=== PATIENT | male | born 1975 | race Two or more races ===

== ENCOUNTER → 2022-03-23 14:38 | Outpatient (BNVA) | payer OTHER, SELFPAY | PROVIDERS: PCP Internal Medicine; Visit Provider Internal Medicine | DX: J45.909 Unspecified asthma, uncomplicated (principal); F41.9 Anxiety disorder, unspecified; E66.01 Morbid (severe) obesity due to excess calories; G47.33 Obstructive sleep apnea (adult) (pediatric); Z99.89 Dependence on other enabling machines and devices | CPT/HCPCS: 99202 ==

== ENCOUNTER 2022-04-02 | Outpatient (REF) | payer OTHER, SELFPAY ==
--- NOTE | 2022-04-02 08:41 | PFT_ITS ---
Forced vital capacity 55%, FEV1 59%, BDW71-64 81%, and MVV 22%. Post bronchodilator therapy, there is a slight improvement of 15% in VHC58-83. Total lung capacity is 70%. Residual volume 94%. Diffusion capacity 82%. CONCLUSION: Mild restrictive pulmonary disorder. No significant obstructive airway disorder. Clinical correlation recommended. MD NAEL Lind/MODAnthony / [id number]
== END 2022-04-02 00:01 | disposition home or self-care (01) ==
LOC: HO.RESP
PROVIDERS: Visit Provider Internal Medicine
DX: J45.909 Unspecified asthma, uncomplicated (principal)
CPT/HCPCS: 94060; 94727; 94729

== ENCOUNTER 2025-02-23 09:22 | Outpatient (AMB) | payer OTHER, SELFPAY ==
[2025-02-23 09:25] VITALS: BP 118/72; PULSE 67; RESP 18; TEMP 36.8; O2SAT 96; BMI 62.3
--- NOTE | 2025-02-23 09:25 | MHC.PC.OV ---
Vital Signs 02/23/25 09:25 Height 5 ft 8 in Weight 410 lb BMI 62.3 BP 118/72 Blood Pressure Location Lt radial Position Sitting Respiration 18 Pulse 67 Pulse Source Pulse Oximeter Temp 98.2 F Temp Source Oral Pulse Oximetry (%) 96 Oxygen Delivery Method Room Air Intake Visit Reasons: FOLLOW UP Intake Note: Pt is here today for a follow up visit. Allergies No Known Allergies Allergy (Verified 02/23/25 09:29) Medication List - Last Reconciled 02/23/25 by Mary Dennis MD acetaminophen 500 mg PO TID PRN albuterol sulfate 90 mcg/actuation 2 puffs inhalation Q6H PRN amlodipine 2.5 mg PO DAILY ammonium lactate 12% 1 appl topical BID PRN baclofen 20 mg PO TID blood sugar diagnostic (Yotta280uch Ultra Test strips) 1 bid blood-glucose meter (Yotta280uch Ultra2 Meter) As directed buspirone 10 mg PO TID clopidogrel 75 mg PO DAILY diaper,brief,adult,disposable 1 diaper 5 x day dronedarone (Multaq) 400 mg PO BID gabapentin 800 mg PO TID isosorbide mononitrate ER 30 mg PO DAILY lisinopril 5 mg PO DAILY loratadine 10 mg PO DAILY lorazepam 1 mg PO TID PRN metformin 500 mg PO DAILY metoprolol tartrate 25 mg PO BID multivitamin 1 tab PO DAILY nitroglycerin 0.4 mg sublingual Q5M PRN nystatin 1 appl topical BID nystatin 1 appl topical BID pantoprazole 40 mg PO DAILY rivaroxaban (Xarelto) 20 mg PO DAILY rosuvastatin 40 mg PO DAILY Symbicort 80-4.5 mcg/actuation (budesonide-formoterol) 2 puffs inhalation BID NS tirzepatide (weight loss) (Zepbound) 5 mg subcut QWEEK Tobacco use date assessed: 02/23/25 Dental Screening Dental Screen Date: 02/23/25 Did you have a dental visit in the last 12 months?: Yes Did you have a dental problem in the last 6 months where you did not have access to dental care?: No Was dental information given to patient?: Patient has dentist HPI FOLLOW UP HPI Details Patient presents for a follow-up. He was in custodial for 2 years. He was managed medically there and was started on 5 mg Zepbound 3 months ago. Patient has been tolerating medication well and lost 20 lb. He would like to increase the dose. Type 2 diabetes hypertension chronic AFib rhythm controlled on Multaq and hyperlipidemia have been controlled on current medications. FOR[facility]LY [facility], [facility] Medical History (Updated 02/23/25 @ 16:35 by Mary Dennis MD) Diabetes mellitus type 2 in obese Spinal stenosis Morbid obesity Osteomyelitis Diarrhea Dysuria Depression BONNIE on CPAP Atrial fibrillation CAD (coronary artery disease) Cauda equina syndrome Lumbar disc disease Surgical History H/O laminectomy No pertinent past surgical history Family History Mother No problems noted. Father Diabetes Hypertelorism Social History Housing: House Alcohol intake: current Alcohol intake frequency: does not drink Patient Tobacco Use Status: Former Tobacco user (20 years ago) e-Cigarette/Vaping Use: Never Used service: No Current occupational status: unemployed Cognitive needs: No Hearing needs: No Vision needs: Yes Questionnaire PHQ-9 Over the last 2 weeks, how often have you been bothered by any of the following problems? 41974 - PHQ-9 Billing: Patient declined-do not bill Source: Developed by Drs. Kalen Boyle, Maddi Alvarado, Pancho Bonds and colleagues, with an educational yokasta from [employer]. Thrive Questionnaire Date Thrive assessed: 02/23/25 I am a: Patient What is your living situation today?: I choose not to answer this question Within the past 12 months, did the food you bought not last and you didn't have the money to get more?: I choose not to answer this question Within the past 12 months, did you worry whether your food would run out before you got money to buy more?: I choose not to answer this question Do you have trouble paying for medicines?: No Do you have trouble getting transportation to medical appointments?: No Do you have trouble paying your heating and electricity bill?: I choose not to answer this question Do you have trouble taking care of your child, family member or friend?: I choose not to answer this question Do you have trouble with day-to-day activities such as bathing, preparing meals, shopping, managing finances, etc.?: I choose not to answer this question Are you currently unemployed and looking for a job?: I choose not to answer this question Are you interested in more education?: I choose not to answer this question Currently or been in a relationship where the following occur: No concerns reported THRIVE Score: 0 AUDIT C Alcohol Use Questionnaire (AUDIT-C) 1. How often do you have a drink containing alcohol?: Never 3. How often do you have six or more drinks on one occasion?: Never Total Score: 0 DELMA-7 AMB Questionnaire DELMA-7 Date DELMA - 7 assessed: 02/23/25 Feeling nervous, anxious, or on edge: 1 = Several days Not being able to stop or control worryin = More than half the days Worrying too much about different things: 2 = More than half the days Trouble relaxin = More than half the days Being so restless that it is hard to sit still: 2 = More than half the days Becoming easily annoyed or irritable: 0 = Not at all Feeling afraid as if something awful might happen: 0 = Not at all Total DELMA-7 score (0-4 normal; 5-9 mild; 10-14 moderate; 15-21 severe): 9 Source: Developed by Drs. Kalen Boyle, Maddi Alvarado, Pancho Bonds and colleagues, with an educational yokasta from [employer]. DELMA-7 Assessment Billing DELMA-7 Assessment Tool: DELMA-7 Assessment 21722 Review of Systems Const All systems reviewed & are unremarkable except as noted in HPI and below Eyes Reports no additional complaints ENT Reports no additional complaints Card Reports no additional complaints Resp Reports no additional complaints GI Reports no additional complaints Reports no additional complaints Physical exam (Primary Care) Vital Signs: Last Vital Signs Temp 98.2 F 02/23/25 09:25 Pulse 67 02/23/25 09:25 Resp 18 02/23/25 09:25 BP 118/72 02/23/25 09:25 Pulse Ox 96 02/23/25 09:25 Oxygen Delivery Method Room Air 02/23/25 09:25 BMI result Body Mass Index 62.3 Tobacco/Smoking Status: Tobacco use Status Tobacco use date assessed 02/23/25 02/23/25 09:40 Patient Tobacco Use Status Former Tobacco user (20 02/23/25 09:40 years ago) e-Cigarette/Vaping Use Never Used 02/23/25 09:40 Thrive Assessment: Date of Thrive Assessment Date Thrive assessed 02/23/25 02/23/25 09:40 Currently or been in a relationship where the following occur: No concerns reported Const General: no acute distress HENMT Head: Yes normal to inspection Throat: Yes posterior oropharynx normal Resp Effort & Inspection: normal respiratory effort Auscultation: clear to auscultation bilaterally Cardio Rhythm: regular rhythm Heart sounds: S1 normal heart sound present and S2 normal heart sound present GI Inspection: Yes normal to inspection Palpation (GI): Soft to palpation Percussion: Yes normal to percussion Auscultation: normal bowel sounds Coding Level of Care Code Est Pt Level 4 (64456) Complex EM visit Add On G2211 Diagnoses Atrial fibrillation I48.91 Morbid obesity E66.01 Diabetes mellitus type 2 in obese E11.69; E66.9 CAD (coronary artery disease) I25.10 Additional Codes DELMA-7 Assessment Billing - DELMA-7 Assessment Tool: DELMA-7 Assessment 17978 ([id number]) Assessment & Plan Assessment & Plan (1) Atrial fibrillation: Comment: Follow-up with [facility], rhythm controlled on Multaq Code(s): I48.91 - Unspecified atrial fibrillation Category: Medical Plan: Continue current medications follow-up with Cardiology (2) Morbid obesity: Comment: [facility] 62.3 02/2025 Code(s): E66.01 - Morbid (severe) obesity due to excess calories Category: Medical Plan: Increase Zepbound to 7.5 mg, decreasing caloric intake increasing physical activity and weight loss discussed with the patient. Follow-up in 3 months with a fasting labs before (3) Diabetes mellitus type 2 in obese: Code(s): E11.69 - Type 2 diabetes mellitus with other specified complication; E66.9 - Obesity, unspecified Category: Medical Plan: Check A1c continue metformin ADA diet regular physical activity weight loss discussed with the patient (4) CAD (coronary artery disease): Comment: s/p stent in 2014, s/p CHRIS in RCA 10/11, f/u [facility] Code(s): I25.10 - Atherosclerotic heart disease of [place] coronary artery without angina pectoris Category: Medical Plan: high dose of statin and follow-up with the Cardiology Orders: Orders Lipid Panel Today E11. - Type 2 diabetes mellitus with other specified complication, E66.01 - Morbid (severe) obesity due to excess calories, E66.9 - Obesity, unspecified, I48.91 - Unspecified atrial fibrillation Hemoglobin A1c Today E11. - Type 2 diabetes mellitus with other specified complication, E66.01 - Morbid (severe) obesity due to excess calories, E66.9 - Obesity, unspecified, I48.91 - Unspecified atrial fibrillation Microalbumin, Random (w Creat) Today E11. - Type 2 diabetes mellitus with other specified complication, E66.01 - Morbid (severe) obesity due to excess calories, E66.9 - Obesity, unspecified, I48.91 - Unspecified atrial fibrillation Comprehensive [place]. Panel Fast Today E11. - Type 2 diabetes mellitus with other specified complication, E66.01 - Morbid (severe) obesity due to excess calories, E66.9 - Obesity, unspecified, I48.91 - Unspecified atrial fibrillation Complete Blood Count Auto Diff Today E11. - Type 2 diabetes mellitus with other specified complication, E66.01 - Morbid (severe) obesity due to excess calories, E66.9 - Obesity, unspecified, I48.91 - Unspecified atrial fibrillation Hemoglobin A1c 3 Months E11. - Type 2 diabetes mellitus with other specified complication, E66.01 - Morbid (severe) obesity due to excess calories, E66.9 - Obesity, unspecified Comprehensive [place]. Panel Fast 3 Months E11. - Type 2 diabetes mellitus with other specified complication, E66.01 - Morbid (severe) obesity due to excess calories, E66.9 - Obesity, unspecified Lipid Panel 3 Months E11. - Type 2 diabetes mellitus with other specified complication, E66.01 - Morbid (severe) obesity due to excess calories, E66.9 - Obesity, unspecified Microalbumin, Random (w Creat) 3 Months E11. - Type 2 diabetes mellitus with other specified complication, E66.01 - Morbid (severe) obesity due to excess calories, E66.9 - Obesity, unspecified Medications: New tirzepatide (weight loss) (Zepbound) 7.5 mg (0.5 mL) subcut QWEEK 2 mL 3RF Changed From metoprolol tartrate 25 mg PO TID 90 tabs 0RF To metoprolol tartrate 25 mg PO BID
--- OUTSIDE RECORDS SUMMARY | 2025-02-23 09:51 | XMS_ITS | Referral Summary ---
Author Organization [facility] Address [address] [place] [address] Care Team Providers Care Security Management Specialist Name Role Phone Patient, Has No Pcp Or Ref Primary Care Provider Unavailable Allergies No known active allergies Medications busPIRone (BUSPAR) 15 mg tablet Take 15 mg by mouth 3 times a day. Active melatonin 3 mg tablet Take 10 mg by mouth nightly. Active budesonide-formo teroL (SYMBICORT) 160-4.5 mcg inhaler Inhale 2 puffs by mouth 2 times a day. Rinse mouth with water after use. Do not swallow. Active metFORMIN ER (GLUCOPHAGE XR) 500 mg tablet Take 500 mg by mouth daily with dinner. Active tirzepatide (MOUNJARO) 2.5 mg/0.5 mL pen injector Inject 2.5 mg under the skin every 7 days. On Active gabapentin (NEURONTIN) 400 mg capsule Take 400 mg by mouth once a day. At noon time Active albuterol 2.5 mg/3 mL (0.083%) nebulizer solution Inhale 1 vial via nebulizer every 6 hours as needed for wheezing or shortness of breath. Active baclofen (LIORESAL) 10 mg tablet Take 20 mg by mouth 3 times a day. Active famotidine (PEPCID) 20 mg tablet Take 20 mg by mouth 2 times a day as needed for heartburn. Active rosuvastatin (CRESTOR) 40 mg tablet Take 40 mg by mouth once a day. Active clopidogreL (PLAVIX) 75 mg tablet Take 75 mg by mouth once a day. Active lisinopriL (PRINIVIL,ZESTRI L) 5 mg tablet Take 5 mg by mouth once a day. Active dronedarone (MULTAQ) 400 mg tablet Take 400 mg by mouth 2 times a day. Active gabapentin (NEURONTIN) 600 mg tablet Take 600 mg by mouth 2 times a day. Active aluminum-magnesi um hydroxide-simeth icone (MAALOX PLUS) 200-200-20 mg/5 mL suspension Take 30 mL by mouth every 4 hours as needed for indigestion or heartburn. Active acetaminophen (TYLENOL) 325 mg tablet Take 2 tablets (650 mg total) by mouth every 4 hours as needed for fever or pain. Active pantoprazole DR (PROTONIX) 40 mg tablet Take 1 tablet (40 mg total) by mouth once a day. Active isosorbide mononitrate ER (IMDUR) 30 mg tablet Take 1 tablet (30 mg total) by mouth once a day. Active metoprolol succinate XL (TOPROL XL) 50 mg tablet Take 1 tablet (50 mg total) by mouth once a day. Active rivaroxaban (XARELTO) 20 mg tablet Take 1 tablet (20 mg total) by mouth once a day. 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 10/07/2024 History of TN (myocardial infarction) 10/07/2024 Chronic atrial fibrillation 10/07/2024 Anticoagulant long-term use 10/07/2024 Type 2 diabetes mellitus, [facility] long-term current use of insulin 10/07/2024 Cauda equina syndrome 10/07/2024 Hypertension Class 3 severe obesity with serious comorbidity and body mass index (BMI) of 60.0 to 69.9 in adult Immunizations Immunization Administration Dates Next Due INFLUENZA, SPLIT VIRUS, TRIVALENT, PF 10/11/2024 (Deferred: Patient Refused) Social History Tobacco Use Types Packs/Day Years Used Date Smoking Tobacco: Former Cigarettes Smokeless Tobacco: Never Comments:Quit 32 years ago. Smoked socially Alcohol Use Standard Drinks/Week Comments Not Currently 0 (1 standard drink = 0.6 oz pur e alcohol) [facility] Utilities Answer Date Recorded In the past 12 months has [employer], [employer], oil, or water [employer] threatened to shut off services in your home? No 10/08/2024 Hunger Vital Sign Answer Date Recorded Within the past 12 months, y ou worried that your food would run out before you got the money to buy more. Never true 10/09/19 25 Within the past 12 months, t he food you bought just didn't last and you didn't have money to get more. Never true 10/08/2024 Transportation Answer Date Recorded In the past 12 months, has l ack of reliable transportation kept you from medical appointments, meetings, work or from getting things needed for daily living? No 10/08/2024 Housing Answer Date Recorded Housing Risk Low 2 10/08/2024 Housing Risk Medium Not on file 10/08/2024 Housing Risk High Not on file 10/08/2024 What is your living situation today? LSSTEADY 10/08/2024 Sex and Gender Information Value Date Recorded Sex Assigned at Male 05/16/2024 9:27 AM EDT Legal Sex Male 12:02 AM EDT Gender Identity Not on file Sexual Orientation Not on file Last Filed Vital Signs Vital Sign Reading Time Taken Comments Blood Pressure 115/73 10/11/2024 1:25 PM EDT Pulse 80 10/11/2024 1:25 PM EDT Temperature 37.3 C (99.1 F) 10/11/2024 11:09 AM EDT Respiratory Rate 16 10/11/2024 1:25 PM EDT Oxygen Saturation 93% 10/11/2024 1:25 PM EDT Inhaled Oxygen Concentration - - Weight 176.9 kg (390 lb) 10/10/2024 2:29 PM EDT Height 172.7 cm (5' 8 ) 10/10/2024 2:29 PM EDT Body Mass Index 59.3 10/10/2024 2:29 PM EDT Plan of Treatment Not on file Procedures * Due to [place] Tier[employer] law, this organization might not be sharing negative HIV tests. Procedure Name Priority Date/Time Associated Diagnosis Comments BASIC METABOLIC PANEL Routine 10/11/2024 5:59 AM EDT HEMOGLOBIN A1C Routine 10/08/2024 5:[address] ABDOMEN PELVIS W CONTRAST STAT 05/16/2024 11:53 AM EDT from Last 3 Months or Most Recently Relevant to Health Maintenance Results * Due to [place] Tier[employer] law, this organization might not be sharing negative HIV tests. * (ABNORMAL) Basic Metabolic Panel (10/11/2024 5:59 AM EDT) NA 138 135 - 145 mmol/L 10/11/2024 7:02 AM EDT [facility] K 4.8 3.5 - 5.3 mmol/L 10/11/2024 7:02 AM EDT [facility] Cl 103 98 - 107 mmol/L 10/11/2024 7:02 AM EDT [facility] CO2 27 22 - 32 mmol/L 10/11/2024 7:02 AM EDT [facility] BUN 12 7 - 23 mg/dL 10/11/2024 7:02 AM EDT [facility] Creatinine 0.78 0.60 - 1.30 mg/dL 10/11/2024 7:02 AM EDT [facility] Glucose 125(H) 65 - 99 mg/dL 10/11/2024 7:02 AM EDT [facility] Calcium 8.9 8.6 - 10.5 mg/dL 10/11/2024 7:02 AM EDT [facility] Anion Gap 8 5 - 15 10/11/2024 7:02 AM EDT [facility] eGFR >90 >=60 mL/min/1 .73m2 10/11/2024 7:02 AM EDT [facility] Comment:The estimated glomer ular filtration rate (eGFR) is calculated using a new formula developed by the NKF-ASN task force to eliminate race-based correction factors. The new formula uses serum/plasma creatinine, age, and gender to determine eGFR. A value below 60mls/min might indicate kidney disease and will be flagged. For additional information, see Hosea et al, Am J Kidney Dis. 2021;79(2):268- 288, A Unifying Approach for GFR estimation: Recommendations of the NKF-ASN Task Force on Reassessing the Inclusion of Race in Diagnosing Kidney Disease . Blood Structure of peripheral vein / Unknown Venipuncture / Unknown 10/11/2024 5:59 AM EDT 10/11/2024 6:27 AM EDT us Andrew Stephens MD LAB BLOOD ORDERABLES Final Resu lt [facility] [address] [place] [id number], [place] * (ABNORMAL) Hemoglobin A1c (10/08/2024 5:47 AM EDT) Hemoglobin A1c 6.5(H) <=5.6 % 10/08/2024 6:17 AM EDT [facility] [employer] [facility] Comment: Patients >=18 years: 5.7-6.4% Increased risk for diabetes (prediabetes) >= 6.5% Diabetes Patients <18 years: Hemoglobin A1c criteria for diagnosing diabetes have not been established for this age range. Estimated Average Glucose 140 mg/dL 10/08/2024 6:17 AM EDT [facility] [employer] [facility] Blood Structure of peripheral vein / Unknown Venipuncture / Unknown 10/08/2024 5:47 AM EDT 10/08/2024 5:47 AM EDT us Silke Vega MD LAB BLOOD ORDERABLES Final Resul t Performing Organization Address City/[facility]/ZIP Co de Phone Number [facility] [address] [place] [id number], [place] * CT Abd Pelvis W Contrast (05/16/2024 11:53 AM EDT) Anatomical Region Laterality Modality Body Computed Tomogra phy 05/16/2024 1:01 PM EDT Impressions 05/16/2024 2:47 PM EDT 1. Few mildly dilated small bowel loops in the left abdomen without a discrete transition point likely reflecting an ileus or partial small bowel obstruction. 2. Liquid stool seen within the small bowel and colon, as can be seen in various causes of diarrhea illness. Otherwise no acute inflammatory process in the abdomen or pelvis. IGertrude, have reviewed the examination and concur with the findings as reported or so edited. Trainee: Maddi Gomez If this radiology report contains a blank impression section, it is an incomplete radiology report. Please contact the interpreting radiologist or applicable radiology division as soon as possible to obtain the completed interpretation. Workstation ID: [id number] Up-to-date CT equipment and radiation dose reduction techniques were employed. CTDIvol: 21.0 mGy. DLP: 1161 mGy-cm. Narrative 05/16/2024 2:47 PM EDT EXAMINATION: CT ABDOMEN PELVIS W CONTRAST INDICATION: Left-sided abdominal pain and diarrhea. TECHNIQUE: Images of the abdomen and pelvis were obtained with intravenous contrast, without oral contrast. Coronal and sagittal reformats were generated. COMPARISON: None available. FINDINGS: Suboptimal evaluation due to artifact from patient's body touching the gantry. LOWER THORAX: Mild left lower lobe atelectasis. HEPATOBILIARY: Mild diffuse hepatic steatosis. Patent portal and hepatic veins. Cholelithiasis, without gallbladder wall thickening or pericholecystic edema. No biliary ductal dilatation. SPLEEN: No splenomegaly. PANCREAS: No pancreatic duct dilation or peripancreatic inflammation. ADRENAL GLANDS: No adrenal nodules. KIDNEYS/URETERS: No hydronephrosis no nephroureterolithiasis. Right upper pole 3.5 cm simple renal cyst. GI TRACT: Few mildly dilated air-filled loops of small bowel in the left abdomen, without evidence of a discrete transition point proximally or distally. Air and fluid seen more distally within the small bowel. Air and stool within the colon and rectum. No distention or wall thickening. Descending and sigmoid colon diverticulosis, without evidence of acute diverticulitis. The stomach is distended with fluid. Layering hyperdensity in the stomach likely related to recently ingested food or medications. Normal appendix. PERITONEUM/RETROPERITONEUM: No ascites or free air. LYMPH NODES: No lymphadenopathy. VESSELS: Nonaneurysmal abdominal aorta.. PELVIC ORGANS/BLADDER: Unremarkable. BONES AND SOFT TISSUES: No acute osseous or soft tissue abnormality. Multilevel degenerative changes of the spine, with preserved vertebral body height and alignment. Resulting Agency Comment [id number] Procedure Note Gertrude Meza MD - 05/16/2024 EXAMINATION: CT ABDOMEN PELVIS W CONTRAST INDICATION: Left-sided abdominal pain and diarrhea. TECHNIQUE: Images of the abdomen and pelvis were obtained with intravenouscontrast, without oral contrast. Coronal and sagittal reformats weregenerated. COMPARISON: None available. FINDINGS: Suboptimal evaluation due to artifact from patient's bodytouching the gantry. LOWER THORAX: Mild left lower lobe atelectasis. HEPATOBILIARY: Mild diffuse hepatic steatosis. Patent portal and hepaticveins. Cholelithiasis, without gallbladder wall thickening orpericholecystic edema. No biliary ductal dilatation. SPLEEN: No splenomegaly. PANCREAS: No pancreatic duct dilation or peripancreatic inflammation. ADRENAL GLANDS: No adrenal nodules. KIDNEYS/URETERS: No hydronephrosis no nephroureterolithiasis. Right upperpole 3.5 cm simple renal cyst. GI TRACT: Few mildly dilated air-filled loops of small bowel in the leftabdomen, without evidence of a discrete transition point proximally ordistally. Air and fluid seen more distally within the small bowel. Airand stool within the colon and rectum. No distention or wall thickening.Descending and sigmoid colon diverticulosis, without evidence of acutediverticulitis. The stomach is distended with fluid. Layeringhyperdensity in the stomach likely related to recently ingested food ormedications. Normal appendix. PERITONEUM/RETROPERITONEUM: No ascites or free air. LYMPH NODES: No lymphadenopathy. VESSELS: Nonaneurysmal abdominal aorta.. PELVIC ORGANS/BLADDER: Unremarkable. BONES AND SOFT TISSUES: No acute osseous or soft tissue abnormality.Multilevel degenerative changes of the spine, with preserved vertebralbody height and alignment. IMPRESSION: 1. Few mildly dilated small bowel loops in the left abdomen without adiscrete transition point likely reflecting an ileus or partial smallbowel obstruction. 2. Liquid stool seen within the small bowel and colon, as can be seen invarious causes of diarrhea illness. Otherwise no acute inflammatoryprocess in the abdomen or pelvis. I, Gertrude Meza, have reviewed the examination and concur with thefindings as reported or so edited. Trainee: Maddi Gomez If this radiology report contains a blank impression section, it is anincomplete radiology report. Please contact the interpreting radiologistor applicable radiology division as soon as possible to obtain thecompleted interpretation. Workstation ID: [id number] Up-to-date CT equipment and radiation dose reduction techniques wereemployed. CTDIvol: 21.0 mGy. DLP: 1161 mGy-cm. us Danie Noonan MD IMG CT PROCEDURES Final Resu lt from Last 3 Months or Most Recently Relevant to Health Maintenance Insurance * Guarantor: [facility] Account Type Relation to Patient Date of Phone B[facility] [address] [place] [address] [employer] Member Subscriber Plan / Payer (Ef fective 2024-Present) Name:Leo Mendoza Relation to Subscriber:Self Name:Leo Mendoza Payer ID:[id number] Group ID:Not on file Type:Not on file [phone] Address: [address] [place] [address], [place] [id number] * [facility] Account Type Relation to Patient Date of Phone Billing Address [facility] [address] [place] [address] [employer]AL [employer] Member Subscriber Plan / Payer ( fective 2024-Present) Name:Leo Mendoza Relation to Subscriber:Self Name:Leo Mendoza Payer ID:[id number] Group ID:Not on file Type:Not on file [phone] Address: [address] [place] [address], [place] [id number] Advance Directives * Full Code (Latest Code Status on File) Date Activated Date Inactivated Comments 10/07/2024 11:15 PM 10/11/2024 4:15 PM Care Teams Security Management Specialist Relationship Specialty Start Date End Date Patient, Has No Pcp Or Ref DO NOT EDIT THIS RECORD VIA PROVIDER ON THE FLY 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
== END 2025-02-23 10:19 | disposition home or self-care (01) ==
LOC: HO.HMCC 09:23
PROVIDERS: PCP Internal Medicine; Visit Provider Internal Medicine
DX: I48.91 Unspecified atrial fibrillation (principal); E66.01 Morbid (severe) obesity due to excess calories; E11.69 Type 2 diabetes mellitus with other specified complication; Z68.44 Body mass index [BMI] 60.0-69.9, adult; I25.10 Atherosclerotic heart disease of native coronary artery without angina pectoris

== ENCOUNTER 2025-02-23 09:22 | Outpatient (REF) | payer OTHER, SELFPAY ==
[2025-02-23 13:09] LABS: Alanine Aminotransferase 30 U/L (0-40); Albumin Level 4.5 g/dL (3.5-5.0); Alkaline Phosphatase 70 U/L (39-117); Anion Gap 12 (12-20); Aspartate Amino Transferase 31 U/L (5-37); Blood Urea Nitrogen 14 mg/dL (9-16); Calcium 9.2 mg/dL (8.4-10.2); Carbon Dioxide 27 mmol/L (22-29); Chloride 106 mmol/L (96-108); Cholesterol 106 mg/dL (<200); Estimated Glomerular Filt Rate > 60; HDL Cholesterol 40 mg/dL (>40); Potassium 4.6 mmol/L (3.3-5.1); Sodium 140 mmol/L (135-145); Total Protein 7.1 g/dL (6.5-8.0); Triglycerides 80 mg/dL (<150)
[2025-02-23 13:16] LABS: MANUAL DIFF FLAG NO
[2025-02-23 13:22] LABS: Hematocrit 43.4 % (42.0-52.0); Hemoglobin 14.1 g/dl (14.0-18.0); Imm Gran Abs Auto 0.06 X10*3/uL (0.00-0.03); Imm Gran Pct Auto 0.6 % (0.0-0.4); Lymphocytes Absolute Auto 3.2 X10*3/uL (1.2-4.9); Mean Corpuscular HGB Conc 32.5 g/dl (31.0-36.0); Mean Corpuscular Hemoglobin 29.1 pg (27.0-33.0); Mean Corpuscular Volume 89.5 fL (80.0-98.0); NRBC Abs Auto 0.000 X10*3/uL (0.0-0.012); NRBC Pct Auto 0.0 /100WBC (0.0-0.2); Platelet Count 243 X10*3/uL (160-400); Red Blood Count 4.85 X10*6/uL (4.60-5.80); White Blood Count 9.4 X10*3/uL (4.8-10.8)
[2025-02-23 13:36] LABS: Hemoglobin A1C 189.4589 umol/L; Total Hemoglobin (HGBA1C) 3696.5744 umol/L
[2025-02-23 13:43] LABS: Alanine Aminotransferase 27 U/L (0-40); Albumin Level 4.5 g/dL (3.5-5.0); Alkaline Phosphatase 72 U/L (39-117); Aspartate Amino Transferase 29 U/L (5-37); Total Protein 7.2 g/dL (6.5-8.0)
== END 2025-02-23 09:23 | disposition home or self-care (01) ==
LOC: HO.HMGCLDS 09:22
PROVIDERS: PCP Internal Medicine; Referring Provider Physician Assistant; Visit Provider Internal Medicine
DX: I48.91 Unspecified atrial fibrillation (principal); E11.69 Type 2 diabetes mellitus with other specified complication; E66.01 Morbid (severe) obesity due to excess calories; Z68.44 Body mass index [BMI] 60.0-69.9, adult; I25.10 Atherosclerotic heart disease of native coronary artery without angina pectoris; M48.061 Spinal stenosis, lumbar region without neurogenic claudication; Z79.84 Long term (current) use of oral hypoglycemic drugs; Z13.39 Encounter for screening examination for other mental health and behavioral disorders
CPT/HCPCS: 36415; 80053; 80061; 80076; 82248; 83036; 85025; 96127; 99212

== ENCOUNTER 2025-04-16 14:11 | Outpatient (AMB) | payer OTHER, SELFPAY ==
[2025-04-16 14:12] VITALS: BP 128/80; PULSE 89; RESP 19; TEMP 36.6; O2SAT 95; BMI 61.7
--- NOTE | 2025-04-16 14:12 | A.OFFPC_ITS ---
Vital Signs 04/16/25 14:12 Height 5 ft 8 in Weight 406 lb BMI 61.7 BP 128/80 Blood Pressure Location Rt radial Position Sitting Respiration 19 Pulse 89 Pulse Source Pulse Oximeter Temp 97.9 F Temp Source Oral Pulse Oximetry (%) 95 Oxygen Delivery Method Room Air Intake Visit Reasons: PE/ OVERDUE Intake Note: Pt is here today for PE. Allergies No Known Allergies Allergy (Verified 04/16/25 14:12) Medication List - Last Reconciled 04/16/25 by Mary Dennis MD acetaminophen 500 mg PO TID PRN albuterol sulfate 90 mcg/actuation 2 puffs inhalation Q6H PRN amlodipine 2.5 mg PO DAILY ammonium lactate 12% 1 appl topical BID PRN baclofen 20 mg PO TID [bariatric walker with wheels and seat As directed Weight 410 lbs, Height 5'8 ] blood sugar diagnostic ([employer]uch Ultra Test strips) 1 bid blood-glucose meter ([employer] MedicalTouch Ultra2 Meter) As directed buspirone 10 mg PO TID clopidogrel 75 mg PO DAILY diaper,brief,adult,disposable 1 diaper 5 x day dronedarone (Multaq) 400 mg PO BID gabapentin 800 mg PO TID isosorbide mononitrate ER 30 mg PO DAILY lisinopril 5 mg PO DAILY loratadine 10 mg PO DAILY lorazepam 1 mg PO TID PRN metformin 500 mg PO DAILY metoprolol tartrate 25 mg PO BID multivitamin 1 tab PO DAILY nitroglycerin 0.4 mg sublingual Q5M PRN nystatin 1 appl topical BID nystatin 1 appl topical BID pantoprazole 40 mg PO DAILY rivaroxaban (Xarelto) 20 mg PO DAILY rosuvastatin 40 mg PO DAILY Symbicort 80-4.5 mcg/actuation (budesonide-formoterol) 2 puffs inhalation BID NS tirzepatide (weight loss) (Zepbound) 7.5 mg (0.5 mL) subcut QWEEK walker As directed Tobacco use date assessed: 04/16/25 Dental Screening Dental Screen Date: 02/23/25 HPI PE/ OVERDUE HPI Details Patient presents for a physical. 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 Type 2 diabetes has been controlled on metformin and patient has been tolerating 7.5 mg of Zepbound. he lost 20 lbs. S he has been decreasing caloric intake increasing physical activity and would like to try 10 mg of Zepbound. [facility] Medical History (Updated 04/16/25 @ 17:54 by Mary Dennis MD) Colon cancer screening Asthma Otitis externa Anxiety Diabetes mellitus type 2 in obese Spinal stenosis Morbid obesity Diarrhea Dysuria Depression BONNIE on CPAP Atrial fibrillation CAD (coronary artery disease) Cauda equina syndrome Lumbar disc disease Surgical History H/O laminectomy No pertinent past surgical history Family History Mother No problems noted. Father Diabetes Hypertelorism Social History Housing: House Alcohol intake: current Alcohol intake frequency: does not drink Patient Tobacco Use Status: Former Tobacco user (20 years ago) e-Cigarette/Vaping Use: Never Used service: No Current occupational status: unemployed Cognitive needs: No Hearing needs: No Vision needs: Yes Questionnaire PHQ-9 Over the last 2 weeks, how often have you been bothered by any of the following problems? 1. Little interest or pleasure in doing things: not at all 2. Feeling down, depressed, or hopeless: not at all 3. Trouble falling or staying asleep, or sleeping too much: not at all 4. Feeling tired or having little energy: not at all 5. Poor appetite or overeating: not at all 6. Feeling bad about yourself - or that you are a failure or have let yourself o r your family down: not at all 7. Trouble concentrating on things, such as reading the newspaper or watching television: not at all 8. Moving or speaking so slowly that other people could have noticed. Or the opposite - being so fidgety or restless that you have been moving around a lot more than usual: not at all 9. Thoughts that you would be better off or of hurting yourself in some way: not at all Total score: 0 Depression Screening Interpretation: Negative Depression Screening Done: Yes Source: Developed by Drs. Kalen Boyle, Maddi Alvarado, Pancho Bonds and colleagues, with an educational yokasta from [employer] Thrive Questionnaire Date Thrive assessed: 02/20/25 I am a: Patient What is your living situation today?: I choose not to answer this question Within the past 12 months, did the food you bought not last and you didn't have the money to get more?: I choose not to answer this question Within the past 12 months, did you worry whether your food would run out before you got money to buy more?: I choose not to answer this question Do you have trouble paying for medicines?: No Do you have trouble getting transportation to medical appointments?: No Do you have trouble paying your heating and electricity bill?: I choose not to answer this question Do you have trouble taking care of your child, family member or friend?: I choose not to answer this question Do you have trouble with day-to-day activities such as bathing, preparing meals, shopping, managing finances, etc.?: I choose not to answer this question Are you currently unemployed and looking for a job?: I choose not to answer this question Are you interested in more education?: I choose not to answer this question Currently or been in a relationship where the following occur: No concerns reported THRIVE Score: 0 DELMA-7 AMB Questionnaire DELMA-7 Date DELMA - 7 assessed: 02/23/25 Feeling nervous, anxious, or on edge: 0 = Not at all Not being able to stop or control worryin = Not at all Worrying too much about different things: 0 = Not at all Trouble relaxin = Not at all Being so restless that it is hard to sit still: 0 = Not at all Becoming easily annoyed or irritable: 0 = Not at all Feeling afraid as if something awful might happen: 0 = Not at all Total DELMA-7 score (0-4 normal; 5-9 mild; 10-14 moderate; 15-21 severe): 0 Source: Developed by Drs. Kalen Boyle, Maddi Alvarado, Pancho Bonds and colleagues, with an educational yokasta from [employer] Review of Systems Const All systems reviewed & are unremarkable except as noted in HPI and below Reports no additional complaints Eyes Reports no additional complaints ENT Reports no additional complaints Card Reports no additional complaints Resp Reports no additional complaints GI Reports no additional complaints Physical exam (Primary Care) Vital Signs: Last Vital Signs Temp 97.9 F 04/16/25 14:12 Pulse 89 04/16/25 14:12 Resp 19 04/16/25 14:12 BP 128/80 04/16/25 14:12 Pulse Ox 95 04/16/25 14:12 Oxygen Delivery Method Room Air 04/16/25 14:12 BMI result Body Mass Index 61.7 Tobacco/Smoking Status: Tobacco use Status Tobacco use date assessed 04/16/25 04/16/25 14:13 Patient Tobacco Use Status Former Tobacco user (20 04/16/25 14:13 years ago) e-Cigarette/Vaping Use Never Used 04/16/25 14:13 PHQ-9: PHQ-9 Score PHQ-9: Total score 0 04/16/25 14:33 Depression Screening Interpretation: Negative Thrive Assessment: Date of Thrive Assessment Date Thrive assessed 02/20/25 04/16/25 14:13 Currently or been in a relationship where the following occur: No concerns reported Const General: no acute distress HENMT Head: Yes normal to inspection Ears: hearing grossly normal bilaterally Face and sinus: Yes normal facial exam Throat: Yes posterior oropharynx normal Eyes General: appearance normal, both eyes and all related structures Neck Neck: Yes no lymphadenopathy and Yes supple Resp Effort & Inspection: normal respiratory effort Auscultation: clear to auscultation bilaterally Cardio Rhythm: regular rhythm Heart sounds: S1 normal heart sound present and S2 normal heart sound present GI Inspection: Yes normal to inspection Palpation (GI): Soft to palpation Percussion: Yes normal to percussion Auscultation: normal bowel sounds Coding Level of Care Code Est Pt Prev Care 40-64y(42469) Diagnoses CAD (coronary artery disease) I25.10 Atrial fibrillation I48.91 Diabetes mellitus type 2 in obese E11.69; E66.9 Annual physical exam Z00.00 Assessment & Plan Assessment & Plan (1) CAD (coronary artery disease): Comment: s/p stent in 2014, s/p CHRIS in RCA 10/11, f/u [facility] Cardiology Code(s): I25.10 - Atherosclerotic heart disease of [place] coronary artery without angina pectoris Category: Medical Plan: Continue current medication follow-up with cardiology obtain records from [facility] (2) Atrial fibrillation: Comment: Follow-up with [facility] Cardiology, rhythm controlled on Multaq Code(s): I48.91 - Unspecified atrial fibrillation Category: Medical Plan: Rhythm controlled on Multaq and anticoagulated on Xarelto (3) Diabetes mellitus type 2 in obese: Code(s): E11.69 - Type 2 diabetes mellitus with other specified complication; E66.9 - Obesity, unspecified Category: Medical Plan: A1c is 6.8, ADA diet increase exercise weight loss discussed with the patient continue metformin and increase Zepbound to 10 mg weekly. Follow-up in 3 months with a fasting labs before (4) Annual physical exam: Code(s): Z00.00 - Encounter for general adult medical examination without abnormal findings Category: Medical Plan: Well-balanced diet decrease caloric intake and weight loss discussed with the patient. He had negative Cologuard diet by insurance and will obtain records. patient declined colonoscopy Orders: Orders Comprehensive [place]. Panel Fast 3 Months E11.69 - Type 2 diabetes mellitus with other specified complication, E66.9 - Obesity, unspecified, I25.10 - A therosclerotic heart disease of [place] coronary artery without angina pectoris, I48.91 - Unspecified atrial fibrillation Microalbumin, Random (w Creat) 3 Months E11.69 - Type 2 diabetes mellitus with other specified complication, E66.9 - Obesity, unspecified, I25.10 - Atherosclerotic heart disease of [place] coronary artery without angina pectoris, I48.91 - Unspecified atrial fibrillation Complete Blood Count Auto Diff 3 Months E11.69 - Type 2 diabetes mellitus with other specified complication, E66.9 - Obesity, unspecified, I25.10 - Atheros clerotic heart disease of [place] coronary artery without angina pectoris, I48.91 - Unspecified atrial fibrillation Lipid Panel 3 Months E11.69 - Type 2 diabetes mellitus with other specified complication, E66.9 - Obesity, unspecified, I25.10 - Atherosclerotic heart disease of [place] coronary artery without angina pectoris, I48.91 - Unspecified atrial fibrillation Hemoglobin A1c 3 Months E11.69 - Type 2 diabetes mellitus with other specified complication, E66.9 - Obesity, unspecified, I25.10 - Atherosclerotic heart disease of [place] coronary artery without angina pectoris, I48.91 - Unspecified atrial fibrillation Medications: New walker As directed 1 ea 0RF M48.00 - Spinal stenosis, site unspecified walker As directed 1 ea 0RF M48.00 - Spinal stenosis, site unspecified tirzepatide (weight loss) (Zepbound) 10 mg (0.5 mL) subcut QWEEK 2 mL 1RF Refilled blood-glucose meter (OneTouch Ultra2 Meter) As directed 1 ea 0RF blood sugar diagnostic (OneTouch Ultra Test strips) 1 bid 100 ea 3RF blood-glucose meter (OneTouch Ultra2 Meter) As directed 1 ea 0RF Symbicort 80-4.5 mcg/actuation (budesonide-formoterol) 2 puffs inhalation BID 30.6 grams 3RF NS blood sugar diagnostic (OneTouch Ultra Test strips) 1 bid 100 ea 3RF
== END 2025-04-16 16:54 | disposition home or self-care (01) ==
LOC: HO.HMCC 14:11
PROVIDERS: PCP Internal Medicine; Visit Provider Internal Medicine
DX: Z00.00 Encounter for general adult medical examination without abnormal findings (principal); I48.91 Unspecified atrial fibrillation; E11.69 Type 2 diabetes mellitus with other specified complication; Z68.44 Body mass index [BMI] 60.0-69.9, adult; E66.9 Obesity, unspecified; I25.10 Atherosclerotic heart disease of native coronary artery without angina pectoris

== ENCOUNTER → 2025-04-16 14:11 | Outpatient (BNVA) | payer OTHER, SELFPAY | PROVIDERS: PCP Internal Medicine; Visit Provider Internal Medicine | DX: Z00.00 Encounter for general adult medical examination without abnormal findings (principal); I48.0 Paroxysmal atrial fibrillation; I25.10 Atherosclerotic heart disease of native coronary artery without angina pectoris; E11.69 Type 2 diabetes mellitus with other specified complication; E66.9 Obesity, unspecified; Z68.44 Body mass index [BMI] 60.0-69.9, adult; Z79.84 Long term (current) use of oral hypoglycemic drugs; Z13.31 Encounter for screening for depression | CPT/HCPCS: 99396 ==

== ENCOUNTER 2025-05-28 12:58 | Outpatient (AMB) | payer OTHER, SELFPAY ==
[2025-05-28 13:07] VITALS: BP 122/70; PULSE 71; RESP 17; TEMP 36.6; O2SAT 95; BMI 61.6
--- NOTE | 2025-05-28 13:07 | A.OFFPC_ITS ---
Vital Signs 05/28/25 13:07 Height 5 ft 8 in Weight 405 lb BMI 61.6 BP 122/70 Blood Pressure Location Lt brachial Position Sitting Respiration 17 Pulse 71 Pulse Source Pulse Oximeter Temp 97.8 F Temp Source Oral Pulse Oximetry (%) 95 Oxygen Delivery Method Room Air Intake Visit Reasons: need a form process Intake Note: Pt is here today for a follow up visit. pt states that he needs a refill on Pantoprazole. Allergies No Known Allergies Allergy (Verified 04/16/25 14:12) Medication List - Last Reconciled 05/28/25 by Mary Dennis MD acetaminophen 500 mg PO TID PRN albuterol sulfate 90 mcg/actuation 2 puffs inhalation Q6H PRN amlodipine 2.5 mg PO DAILY ammonium lactate 12% 1 appl topical BID PRN baclofen 20 mg PO TID [bariatric walker with wheels and seat As directed Weight 410 lbs, Height 5'8 ] buspirone 10 mg PO TID clopidogrel 75 mg PO DAILY diaper,brief,adult,disposable 1 diaper 5 x day dronedarone (Multaq) 400 mg PO BID FreeStyle Lite Meter (blood-glucose meter) As directed NS FreeStyle Lite Strips (blood sugar diagnostic) Test blood sugar once a day NS gabapentin 800 mg PO TID isosorbide mononitrate ER 30 mg PO DAILY lancets (FreeStyle Lancets) Test blood sugar once a day lisinopril 5 mg PO DAILY loratadine 10 mg PO DAILY lorazepam 1 mg PO TID PRN metformin 500 mg PO DAILY metoprolol tartrate 25 mg PO BID multivitamin 1 tab PO DAILY nitroglycerin 0.4 mg sublingual Q5M PRN nystatin 1 appl topical BID nystatin 1 appl topical BID pantoprazole 40 mg PO DAILY rivaroxaban (Xarelto) 20 mg PO DAILY rosuvastatin 40 mg PO DAILY Symbicort 80-4.5 mcg/actuation (budesonide-formoterol) 2 puffs inhalation BID NS tirzepatide (weight loss) (Zepbound) 12.5 mg (0.5 mL) subcut QWEEK walker As directed Tobacco use date assessed: 04/16/25 Dental Screening Dental Screen Date: 02/23/25 HPI need a form process HPI Details Patient presents complaining of sore throat and difficulty swallowing for 2 days runny nose congestion general body aches but no fever chills shortness or breath or cough. Hypertension is controlled on current medications. Patient has been tolerating tolerating 10 mg of Mounjaro and has been trying to follow ADA diet, decrease caloric intake and increase physical activity which is significantly limited because of patient's chronic lower back pain due to spinal stenosis and bilateral lower extremity weakness. Chronic asthma stable on Symbicort. [facility] Medical History (Updated 05/28/25 @ 21:45 by Mary Dennis MD) Colon cancer screening Asthma Otitis externa Anxiety Diabetes mellitus type 2 in obese Spinal stenosis Morbid obesity Diarrhea Dysuria Depression BONNIE on CPAP Atrial fibrillation CAD (coronary artery disease) Cauda equina syndrome Lumbar disc disease Surgical History H/O laminectomy No pertinent past surgical history Family History Mother No problems noted. Father Diabetes Hypertelorism Social History Housing: House Alcohol intake: current Alcohol intake frequency: does not drink Patient Tobacco Use Status: Former Tobacco user (20 years ago) e-Cigarette/Vaping Use: Never Used service: No Current occupational status: unemployed Cognitive needs: No Hearing needs: No Vision needs: Yes Questionnaire Thrive Questionnaire Date Thrive assessed: 02/20/25 I am a: Patient What is your living situation today?: I choose not to answer this question Within the past 12 months, did the food you bought not last and you didn't have the money to get more?: I choose not to answer this question Within the past 12 months, did you worry whether your food would run out before you got money to buy more?: I choose not to answer this question Do you have trouble paying for medicines?: No Do you have trouble getting transportation to medical appointments?: No Do you have trouble paying your heating and electricity bill?: I choose not to answer this question Do you have trouble taking care of your child, family member or friend?: I choose not to answer this question Do you have trouble with day-to-day activities such as bathing, preparing meals, shopping, managing finances, etc.?: I choose not to answer this question Are you currently unemployed and looking for a job?: I choose not to answer this question Are you interested in more education?: I choose not to answer this question Currently or been in a relationship where the following occur: No concerns reported THRIVE Score: 0 AUDIT C Alcohol Use Questionnaire (AUDIT-C) 3. How often do you have six or more drinks on one occasion?: Never Total Score: 0 DELMA-7 AMB Questionnaire DELMA-7 Date DELMA - 7 assessed: 02/23/25 Source: Developed by Drs. Kalen Boyle, Maddi Alvarado, Pancho Bonds and colleagues, with an educational yokasta from [employer]. Review of Systems Const All systems reviewed & are unremarkable except as noted in HPI and below Eyes Reports no additional complaints Card Reports no additional complaints Resp Reports no additional complaints GI Reports no additional complaints Reports no additional complaints Physical exam (Primary Care) Vital Signs: Last Vital Signs Temp 97.8 F 05/28/25 13:07 Pulse 71 05/28/25 13:07 Resp 17 05/28/25 13:07 BP 122/70 05/28/25 13:07 Pulse Ox 95 05/28/25 13:07 Oxygen Delivery Method Room Air 05/28/25 13:07 BMI result Body Mass Index 61.6 Tobacco/Smoking Status: Tobacco use Status Tobacco use date assessed 04/16/25 05/28/25 13:08 Patient Tobacco Use Status Former Tobacco user (20 05/28/25 13:08 years ago) e-Cigarette/Vaping Use Never Used 05/28/25 13:08 Thrive Assessment: Date of Thrive Assessment Date Thrive assessed 02/20/25 05/28/25 13:08 Currently or been in a relationship where the following occur: No concerns reported Const General: no acute distress HENMT Head: Yes normal to inspection Mouth: Normal oral and palatal mucosa present and tongue abnormal with white coating Throat: Yes tonsils normal, Yes posterior oropharynx abnormal and Yes postnasal drainage Eyes General: appearance normal, both eyes and all related structures Neck Neck: Yes supple Resp Effort & Inspection: normal respiratory effort Auscultation: diminished lung sounds Cardio Rhythm: regular rhythm Heart sounds: S1 normal heart sound present and S2 normal heart sound present GI Inspection: Yes normal to inspection Coding Level of Care Code Est Pt Level 4 (06046) Diagnoses Diabetes mellitus type 2 in obese E11.69; E66.9 Morbid obesity E66.01 Oral thrush B37.0 Atrial fibrillation I48.91 Assessment & Plan Assessment & Plan (1) Diabetes mellitus type 2 in obese: Code(s): E11.69 - Type 2 diabetes mellitus with other specified complication; E66.9 - Obesity, unspecified Category: Medical Plan: ADA diet increase physical activity weight loss discussed with the patient, Mounjaro will be increased to 12.5 mg weekly patient will follow-up in 2 months for fasting blood work (2) Morbid obesity: Comment: BMI 62.3 02/2025 Code(s): E66.01 - Morbid (severe) obesity due to excess calories Category: Medical Plan: Decrease caloric intake increasing physical activity discussed with the patient (3) Oral thrush: Code(s): B37.0 - Candidal stomatitis Category: Medical Plan: Nystatin as prescribed and patient was advised to rinse his mouth after using Symbicort to prevent oral candidiasis (4) Atrial fibrillation: Comment: Follow-up with [facility] Cardiology, rhythm controlled on Multaq, Xarelto for anticoagulation Code(s): I48.91 - Unspecified atrial fibrillation Category: Medical Plan: Continue current medications and follow-up with Cardiology Orders: Orders Comprehensive [place]. Panel Fast 2 Months E11. - Type 2 diabetes mellitus with other specified complication, E66.01 - Morbid (severe) obesity due to excess calories, E66.9 - Obesity, unspecified, I48.91 - Unspecified atrial fibrillation Complete Blood Count Auto Diff 2 Months E11. - Type 2 diabetes mellitus with other specified complication, E66.01 - Morbid (severe) obesity due to excess calories, E66.9 - Obesity, unspecified, I48.91 - Unspecified atrial fibrillation Microalbumin, Random (w Creat) 2 Months E11. - Type 2 diabetes mellitus with other specified complication, E66.01 - Morbid (severe) obesity due to excess calories, E66.9 - Obesity, unspecified, I48.91 - Unspecified atrial fibrillation Lipid Panel 2 Months E11.69 - Type 2 diabetes mellitus with other specified complication, E66.01 - Morbid (severe) obesity due to excess calories, E66.9 - Obesity, unspecified, I48.91 - Unspecified atrial fibrillation Hemoglobin A1c 2 Months .69 - Type 2 diabetes mellitus with other specified complication, E66.01 - Morbid (severe) obesity due to excess calories, E66.9 - Obesity, unspecified, I48.91 - Unspecified atrial fibrillation Medications: New pantoprazole 40 mg PO DAILY 90 tabs 1RF nystatin swish and swallow 10 mL PO QID 250 mL 0RF tirzepatide (Mounjaro) 12.5 mg (0.5 mL) subcut QWEEK 2 mL 0RF Discontinued tirzepatide (weight loss) (Zepbound) Discontinued Reason: Doctor's Order 10 mg (0.5 mL) subcut QWEEK 2 mL 1RF
--- OUTSIDE RECORDS SUMMARY | 2025-05-28 15:54 | XMS_ITS | Data Portability ---
Author Organization BENIGNO Bartlett s, [address] Address [address] [place] [address] Care Team Providers Care Fingerprinter Name Role Phone CHELSI ACE Primary Care Provider Assessment No assessment recorded. Plan of Treatment Reminders Order Date Submit Date Provider Last Modified By Organization Details Last Modified Time Details Appointments None recorded. Lab None recorded. Referral None recorded. Procedures None recorded. Surgeries None recorded. Imaging None recorded. Medication Orders Bactrim DS 800 mg-[address] [facility]/Pharmacy #[id number], [address] [facility] [place], [address], 15:52:15 Patient TargetsNo targets recorded. Patient Instructions Encounter Date Encounter Id Patient Instructions Last Modified By Organization Details Last Modified Time 01/07/2023 [id number] cellulitis: care instructions Not available 01/07/2023 15:52:13 Your symptoms ar e consistent with a probably bacterial infection of the soft tissue or cellulitis. We are going to treat with oral antibiotics so prevent spread and other complications. Take them medications as directed and monitor the area in questions. If there is worsening symptoms, or continued spread, or even no change in 48 hours of antibiotics you will need to be seen urgently, likely at an ED. Otherwise continue medication until symptoms resolve and then finish the entire course. Can use OTC pain meds as needed to control pain and / or fever. Follow up with your PCP. Not available 01/07/2023 15:52:05 Reason for Referral None Reported. 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 ELISA DEPINTO null, [place] - [facility] 3 15:07:50 Injury of cauda equina 787642737 Active 2022 ELISA DEPINTO null, [place] - [facility] 3 15:05:48 Diabetes mellitus 28116201 Active 2022 prediabet ic ELISA DEPINTO null, [place] - [facility] 3 15:06:01 Hyperten sive disorder 60858991 Active 2022 ELISA DEPINTO null, [place] - [facility] 3 15:06:06 Hypercho lesterol emia 96307668 Active 2022 ELISA DEPINTO null, [place] - [facility] 3 15:06:12 Myocardi al infarcti on 78420268 Completed 202201/07/2023 Removal Reason: 2014 and 2021 ELISA DEPINTO null, [place] - [facility] 3 15:06:50 Spinal stenosis 56996554 Active 2022 ELISA DEPINTO null, [place] - [facility] 3 15:07:57 Problem Notes None recorded. Procedures Surgical History Date Name Laterality Status Provider Name and Address Organization Details Recorded Time 2 placement of stent in cardiac conduit completed ELISA DEPINTO PA - [facility] 01/07/2023 15:06:23 1 procedure on spinal cord completed ELISA DEPINTO PA - [facility] 01/07/2023 15:07:29 Imaging Results None recorded. Procedure Notes None recorded. Medical Equipment None Reported. Allergies No known drug allergies Medications Name Sig Start Date Stop Date Status Note LastModified by Organization Details LastModified Time amoxicillin 500 mg capsule TAKE 1 EVERY 6 HOURS UNTIL GONE 01/07 completed Not Available Not Available Not Available metformin 500 mg tablet TAKE 1 TABLET BY MOUTH TWICE A DAY active Not Available Not Available No t Available prednisone 20 mg tablet TAKE 2 TABLETS BY MOUTH EVERY DAY FOR 5 DAYS 01/07 completed Not Available Not Available Not Available amlodipine 2.5 mg tablet TAKE 1 TABLET BY MOUTH EVERY DAY FOR 90 DAYS active Not Available Not Available No t Available melatonin 3 mg tablet TAKE 1-3 TABLET BY MOUTH EVERY NIGHT NEEDED FOR INSOMNIA active Not Available Not Available No t Available clopidogrel 75 mg tablet TAKE 1 TABLET BY MOUTH EVERY DAY FOR 30 DAYS active Not Available Not Available No t Available sulfamethox azole 800 mg-trimetho prim 160 mg tablet TAKE 1 TABLET BY MOUTH EVERY 12 HOURS active Not Available Not Available No t Available acetaminoph en 500 mg tablet TAKE 2 TABLETS BY MOUTH 3 TIMES A DAY NEEDED FOR PAIN active Not Available Not Available No t Available gabapentin 800 mg tablet TAKE 1 TABLET BY MOUTH 3 TIMES A DAY active Not Available Not Available No t Available lorazepam 2 mg tablet TAKE 1 TO 2 TABLETS OVER 24 HOURS NEEDED FOR ANXIETY active Not Available Not Available No t Available lisinopril 5 mg tablet TAKE 1 TABLET BY MOUTH EVERY DAY FOR 90 DAYS active Not Available Not Available No t Available lorazepam 1 mg tablet TAKE 1 TABLET BY MOUTH TWICE A DAY NEEDED FOR ANXIETY active Not Available Not Available No t Available oxycodone-a cetaminophe n 7.5 mg-325 mg tablet TAKE 1 TABLET BY MOUTH EVERY 6 HOURS NEEDED FOR PAIN 01/07 completed Not Available Not Available Not Available oxycodone 5 mg tablet TAKE 1 TABLET BY MOUTH EVERY 8 HOURS NEEDED FOR SEVERE PAIN 01/07 completed Not Available Not Available Not Available rosuvastati n 40 mg tablet TAKE 1 TABLET BY MOUTH EVERY DAY active Not Available Not Available No t Available metoprolol tartrate 25 mg tablet TAKE 1 TABLET BY MOUTH TWICE A DAY WITH FOOD FOR 90 DAYS active Not Available Not Available No t Available Symbicort 80 mcg-4.5 mcg/actuati on HFA aerosol inhaler 2 PUFF INHALED 2 TIMES A DAY active Not Available Not Available No t Available Multaq 400 mg tablet TAKE 1 TABLET BY MOUTH TWICE A DAY WITH MEALS FOR 90 DAYS active Not Available Not Available No t Available Matzim LA 240 mg tablet,exte nded release TAKE 1 TABLET BY MOUTH EVERY DAY 01/07 completed Not Available Not Available Not Available Xarelto 20 mg tablet TAKE 1 TABLET BY MOUTH EVERY DAY WITH FOOD active Not Available Not Available No t Available OneTouch Ultra2 Meter USE DIRECTED active Not Available Not Available No t Available 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 06 g 8 96 % 96 % 79 /min 18 /min 98.2 [degF] 145/82 mm[Hg] ELISA PEL[facility] 15:09:11 Social History Question Answer Notes LastModified by [employer] Details LastModified Time Tobacco Smoking Status Never Smoker BENIGNO Mendoza - [facility] 01/07/2023 15:06:58 Have You Recently Traveled Abroad? No Information not available 01/07/2023 Sex: Unknown Functional Status Question Answer Note LastModified by [employer] Details LastModified Time Do you use any illicit or recreational drugs? No Information not available 01/07/2023 Do you or have you ever used any other forms of tobacco or nicotine? No Information not available 01/07/2023 What is your level of alcohol consumption? None Information not available 01/07/2023 Mental Status None recorded. Family History Relationship Description Onset Age of this Age Resolved Age Notes LastModified by Organization Details LastModified Time Father No current problems or disability Not available 01/07 15:06:52 Mother No current problems or disability Not available 01/07 15:06:53 Medical History No medical history recorded. Past Encounters Encounter ID Performer Location Encounter Start Date Encounter Closed Date Diagnosis/Indication Diagnosis SNOMED-CT Code Diagnosis ICD10 Code Diagnosis IMO Codes Diagnosis Note [id number] [address] [place] [address] 08/08/2021 13:02:01 08/08/2021 15:12:46 [id number] BENIGNO Godfrey [address] [facility] [address] 01/07/2023 14:10:02 01/07/2023 16:09:55 Cellulitis of left upper limb [id number] L03.114 Health Concerns Section Related Observation LastModified by Organization Detai ls LastModified Time None Recorded Concern Status LastModified by Organization Details LastModified Time None Recorded Advance Directives Directive None Recorded Payers Insurance Date Sequence Insurance Name Policy Number Policy Barriga Covered Member ID Barriga Member ID Guarantor Name 01/07/2023 1 [facility] (MEDICAID HMO) YOSSI Mendoza [id number] Leo Mendoza Notes Date Note Type Note Provider Name and Address Organization Details Recorded Time 01/07/2023 text/html Skin Redness UCReported by [facility] UCFor quality, patient reportspainful,burn ing,erythematous, andwarm. For severity, patient reportssevereandwor sening. For onset, patient reportsgradual onset(over 36 hours). For symptoms, patient reportsno fever,no nausea, andno vomiting. For location, (armpit left). BENIGNO Simpson [address] [place], [address], [place] - [facility] 01/07/2023 15:52:43
== END 2025-05-28 17:06 | disposition home or self-care (01) ==
LOC: HO.HMCC 12:58
PROVIDERS: PCP Internal Medicine; Visit Provider Internal Medicine
DX: E11.69 Type 2 diabetes mellitus with other specified complication (principal); E66.01 Morbid (severe) obesity due to excess calories; I48.91 Unspecified atrial fibrillation; Z68.44 Body mass index [BMI] 60.0-69.9, adult; B37.0 Candidal stomatitis

== ENCOUNTER → 2025-05-28 12:58 | Outpatient (BNVA) | payer OTHER, SELFPAY | PROVIDERS: PCP Internal Medicine; Visit Provider Internal Medicine | DX: I10 Essential (primary) hypertension (principal); M54.50 Low back pain, unspecified; J45.909 Unspecified asthma, uncomplicated; E11.69 Type 2 diabetes mellitus with other specified complication; E66.01 Morbid (severe) obesity due to excess calories; B37.0 Candidal stomatitis; I48.91 Unspecified atrial fibrillation; Z68.44 Body mass index [BMI] 60.0-69.9, adult; Z79.899 Other long term (current) drug therapy | CPT/HCPCS: 99212 ==

== ENCOUNTER 2025-07-21 13:11 | Outpatient (AMB) | payer OTHER, SELFPAY ==
[2025-07-21 13:15] VITALS: BP 118/66; PULSE 81; RESP 16; TEMP 36.6; O2SAT 97; BMI 61.4
--- NOTE | 2025-07-21 13:15 | A.OFFPC_ITS ---
Vital Signs 07/21/25 13:15 Height 5 ft 8 in Weight 404 lb BMI 61.4 BP 118/66 Blood Pressure Location Rt brachial Position Sitting Respiration 16 Pulse 81 Pulse Source Pulse Oximeter Temp 97.8 F Temp Source Oral Pulse Oximetry (%) 97 Oxygen Delivery Method Room Air Intake Visit Reasons: Left side pain Intake Note: Pt is here today for a sick visit. Pt c/o L side abdomen pain pt states that when he touches the area he feels like there is a rock in there. Allergies No Known Allergies Allergy (Verified 04/16/25 14:12) Medication List - Last Reconciled 07/21/25 by Mary Dennis MD acetaminophen 500 mg PO TID PRN albuterol sulfate 90 mcg/actuation 2 puffs inhalation Q6H PRN amlodipine 2.5 mg PO DAILY [bariatric walker with wheels and seat As directed Weight 410 lbs, Height 5'8 ] buspirone 10 mg PO TID clopidogrel 75 mg PO DAILY diaper,brief,adult,disposable 1 diaper 5 x day dronedarone (Multaq) 400 mg PO BID FreeStyle Lite Meter (blood-glucose meter) As directed NS FreeStyle Lite Strips (blood sugar diagnostic) Test blood sugar once a day NS gabapentin 800 mg PO TID lancets (FreeStyle Lancets) Test blood sugar once a day lisinopril 5 mg PO DAILY loratadine 10 mg PO DAILY lorazepam 1 mg PO TID PRN metformin ER 750 mg PO DAILY metoprolol succinate ER 50 mg PO DAILY multivitamin 1 tab PO DAILY nitroglycerin 0.4 mg sublingual Q5M PRN nystatin 1 appl topical BID nystatin 1 appl topical BID nystatin 10 mL PO QID pantoprazole 40 mg PO DAILY rivaroxaban (Xarelto) 20 mg PO DAILY rosuvastatin 40 mg PO DAILY Symbicort 80-4.5 mcg/actuation (budesonide-formoterol) 2 puffs inhalation BID NS tirzepatide (Mounjaro) 12.5 mg (0.5 mL) subcut QWEEK walker As directed Tobacco use date assessed: 04/16/25 Dental Screening Dental Screen Date: 02/23/25 HPI Left side pain HPI Details Patient presents complaining of feeling a hard bump on the left lower abdomen for a few months getting worse when patient feels constipated. He has not been taking metformin for 1 month because he ran out. Patient reports intermittent loose and hard bowel movements but denies hematochezia melena nausea vomiting fever chills. Patient has never had colonoscopy. Hypertension type 2 diabetes are controlled on current medications [facility] Medical History (Updated 07/21/25 @ 13:58 by Mary Dennis MD) Colon cancer screening Asthma Otitis externa Anxiety Diabetes mellitus type 2 in obese Spinal stenosis Morbid obesity Diarrhea Dysuria Depression BONNIE on CPAP Atrial fibrillation CAD (coronary artery disease) Cauda equina syndrome Lumbar disc disease Surgical History H/O laminectomy No pertinent past surgical history Family History Mother No problems noted. Father Diabetes Hypertelorism Social History Housing: House Alcohol intake: current Alcohol intake frequency: does not drink Patient Tobacco Use Status: Former Tobacco user (20 years ago) e-Cigarette/Vaping Use: Never Used service: No Current occupational status: unemployed Cognitive needs: No Hearing needs: No Vision needs: Yes Questionnaire Thrive Questionnaire Date Thrive assessed: 02/20/25 I am a: Patient What is your living situation today?: I choose not to answer this question Within the past 12 months, did the food you bought not last and you didn't have the money to get more?: I choose not to answer this question Within the past 12 months, did you worry whether your food would run out before you got money to buy more?: I choose not to answer this question Do you have trouble paying for medicines?: No Do you have trouble getting transportation to medical appointments?: No Do you have trouble paying your heating and electricity bill?: I choose not to answer this question Do you have trouble taking care of your child, family member or friend?: I choose not to answer this question Do you have trouble with day-to-day activities such as bathing, preparing meals, shopping, managing finances, etc.?: I choose not to answer this question Are you currently unemployed and looking for a job?: I choose not to answer this question Are you interested in more education?: I choose not to answer this question Currently or been in a relationship where the following occur: No concerns reported THRIVE Score: 0 DELMA-7 AMB Questionnaire DELMA-7 Date DELMA - 7 assessed: 02/23/25 Source: Developed by Drs. Kalen Boyle, Maddi Alvarado, Pancho Bonds and colleagues, with an educational yokasta from [employer]. Review of Systems Const All systems reviewed & are unremarkable except as noted in HPI and below ENT Reports no additional complaints Card Reports no additional complaints Resp Reports no additional complaints GI Reports no additional complaints Reports no additional complaints Physical exam (Primary Care) Vital Signs: Last Vital Signs Temp 97.8 F 07/21/25 13:15 Pulse 81 07/21/25 13:15 Resp 16 07/21/25 13:15 BP 118/66 07/21/25 13:15 Pulse Ox 97 07/21/25 13:15 Oxygen Delivery Method Room Air 07/21/25 13:15 BMI result Body Mass Index 61.4 Tobacco/Smoking Status: Tobacco use Status Tobacco use date assessed 04/16/25 07/21/25 13:27 Patient Tobacco Use Status Former Tobacco user (20 07/21/25 13:27 years ago) e-Cigarette/Vaping Use Never Used 07/21/25 13:27 Thrive Assessment: Date of Thrive Assessment Date Thrive assessed 02/20/25 07/21/25 13:27 Currently or been in a relationship where the following occur: No concerns reported Const General: no acute distress HENMT Mouth: Normal oral and palatal mucosa present Resp Effort & Inspection: normal respiratory effort Auscultation: clear to auscultation bilaterally Cardio Rhythm: regular rhythm Heart sounds: S1 normal heart sound present and S2 normal heart sound present GI Inspection: Yes normal to inspection Palpation (GI): Soft to palpation Percussion: Yes normal to percussion Auscultation: normal bowel sounds Coding Level of Care Code Est Pt Level 3 (91754) Diagnoses Constipation K59.00 Diabetes mellitus type 2 in obese E11.69; E66.9 Assessment & Plan Assessment & Plan (1) Constipation: Code(s): K59.00 - Constipation, unspecified Category: Medical Plan: Patient was advised to increase fluid and fiber intake. Cologuard will be checked. Patient was advised to have a colonoscopy (2) Diabetes mellitus type 2 in obese: Code(s): E11.69 - Type 2 diabetes mellitus with other specified complication; E66.9 - Obesity, unspecified Category: Medical Plan: Patient was advised to restart metformin continue ADA diet Mounjaro follow-up next month with a fasting labs before Orders: Referrals Cologuard Test Z12.11 - Encounter for screening for malignant neoplasm of colon, Z12.12 - Encounter for screening for malignant neoplasm of rectum Medications: New metformin ER 750 mg PO DAILY 90 tabs 3RF loratadine 10 mg PO DAILY 90 tabs 3RF
--- OUTSIDE RECORDS SUMMARY | 2025-07-21 17:05 | XMS_ITS | Data Portability ---
Author Organization BENIGNO Bartlett s, [address] Address [address] [place] [address] Care Team Providers Care Risk Mgr Name Role Phone CHELSI ACE Primary Care Provider [phone] Assessment No assessment recorded. Plan of Treatment Reminders Order Date Submit Date Provider Last Modified By Organization Details Last Modified Time Details Appointments None recorded. Lab None recorded. Referral None recorded. Procedures None recorded. Surgeries None recorded. Imaging None recorded. Medication Orders Bactrim DS 800 mg-160 mg tablet 023 023 [facility]/Pharmacy #[id number], [address] [facility] [place], [address], 15:52:15 Patient TargetsNo targets recorded. Patient Instructions Encounter Date Encounter Id Patient Instructions Last Modified By Organization Details Last Modified Time 01/07/2023 [id number] cellulitis: care instructions Not available 01/07/2023 15:52:13 [...] n causing granulom a of spinal cord 531457752 Active 2021 ELISA DEPINTO null, [place] - [facility] 3 15:07:50 Injury of cauda equina 707105833 Active 2022 ELISA DEPINTO null, [place] - [facility] 3 15:05:48 Diabetes mellitus 41148685 Active 2022 prediabet ic ELISA DEPINTO null, PA - [facility] 3 15:06:01 Hyperten sive disorder 33785974 Active 2022 ELISA DEPINTO null, [place] - [facility] 3 15:06:06 Hypercho lesterol emia 62913320 Active 2022 ELISA DEPINTO null, [place] - [facility] 3 15:06:12 Myocardi al infarcti on 84476863 Completed 202201/07/2023 Removal Reason: 2014 and 2021 ELISA DEPINTO null, [place] - [facility] 3 15:06:50 Spinal stenosis 73764737 Active 2022 ELISA DEPINTO null, PA - [...] Not Available Not Available No t Available T[employer] Hemp Fiber COVID-19 At-Home Test kit USE DIRECTED active Not Available Not Available No t Available Vitals Date Recorded Body height Body mass index (BMI) Body weight Pain severity - 0-10 verbal numeric rating [Score] - Reported Oxygen saturation Heart rate Respiratory rate Body temperature Systolic And Diastolic Provider Name and Address Organization Details Last Updated DateTime 3 172.72 cm 58.5 kg/m2 800022. 06 g 8 96 % 79 /min 18 /min 98.2 [degF] 145/82 mm[Hg] ELISA HERRMANN [facility] 3 15:09:11 Social History Question Answer Notes LastModified by [employer] Details LastModified Time Tobacco Smoking Status Never Smoker ELISA smith PA [facility] 01/07/2023 15:06:58 Have You Recently Traveled Abroad? No Information not available 01/07/2023 Sex: Unknown Functional Status Question Answer Note LastModified by [employer] Details LastModified Time Do you use any [...] ICD10 Code Diagnosis IMO Codes Diagnosis Note [id number] [place] [address] 08/08/2021 13:02:01 08/08/2021 15:12:46 [id number] BENIGNO Godfrey [address] [place] [address] 01/07/2023 14:10:02 01/07/2023 16:09:55 Cellulitis of left upper limb 3260506294 [id number] L03.114 Health Concerns Section Related Observation LastModified by Organization Detai ls LastModified Time None Recorded Concern Status LastModified by Organization Details LastModified Time None Recorded Advance Directives Directive None Recorded Payers Insurance Date Sequence Insurance Name Policy Number Policy Barriga Covered Member ID Barriga Member ID Guarantor Name 01/07/2023 1 [facility] - HEALTH NET PLAN (MEDICAID HMO) YOSSI Mendoza [id number] Leo Mendoza Notes Date Note Type Note Provider Name and Address Organization Details Recorded Time 01/07/2023 text/html Skin Redness UCReported by Patient[facility]kin Red[facility] UCFor quality, patient reportspainful,burn ing,erythematous, andwarm. For severity, patient reportssevereandwor sening. For onset, patient reportsgradual onset(over 36 hours). For symptoms, patient reportsno fever,no nausea, andno vomiting. For location, (armpit left). BENIGNO Simpson [address] [place], [address], [place] - [facility] 01/07/2023 15:52:43
== END 2025-07-21 14:03 | disposition home or self-care (01) ==
LOC: HO.HMCC 13:11
PROVIDERS: PCP Internal Medicine; Visit Provider Internal Medicine
DX: K59.00 Constipation, unspecified (principal); E11.69 Type 2 diabetes mellitus with other specified complication; E66.9 Obesity, unspecified

== ENCOUNTER → 2025-07-21 13:11 | Outpatient (BNVA) | payer OTHER, SELFPAY | PROVIDERS: PCP Internal Medicine; Visit Provider Internal Medicine | DX: E11.69 Type 2 diabetes mellitus with other specified complication (principal); K59.00 Constipation, unspecified; E66.9 Obesity, unspecified; Z68.44 Body mass index [BMI] 60.0-69.9, adult | CPT/HCPCS: 99212 ==